=== PATIENT | female | born 1995 ===

== ENCOUNTER 2020-12-23 13:45 | Outpatient (CLI) | payer OTHER | END 2020-12-23 14:00 | disposition home or self-care (01) | LOC: PPH VACUNA 13:45 | PROVIDERS: ATTEND Emergency Medicine Pediatric Emergency Medicine | DX: Z23 Encounter for immunization (principal) ==

== ENCOUNTER 2021-07-14 08:13 | Outpatient (CLI) | payer OTHER | END 2021-07-14 08:26 | disposition home or self-care (01) | LOC: RAD 08:13 | PROVIDERS: ATTEND Orthopaedic Surgery Orthopaedic Surgery of the Spine | DX: M41.20 Other idiopathic scoliosis, site unspecified (principal) ==

== ENCOUNTER 2022-12-06 11:53 | Outpatient (CLI) | payer OTHER | END 2022-12-06 12:05 | disposition home or self-care (01) | LOC: SONOGRAMA 11:53 | PROVIDERS: ATTEND Obstetrics & Gynecology | DX: R10.2 Pelvic and perineal pain (principal); N93.8 Other specified abnormal uterine and vaginal bleeding; N93.9 Abnormal uterine and vaginal bleeding, unspecified ==

== ENCOUNTER 2024-05-14 12:43 | Outpatient (CLI) | payer OTHER | END 2024-05-14 12:50 | disposition home or self-care (01) | LOC: RAD 12:43 | DX: J45.40 Moderate persistent asthma, uncomplicated (principal) ==

== ENCOUNTER 2024-12-09 08:56 | Outpatient (CLI) | payer OTHER | END 2024-12-09 08:57 | disposition home or self-care (01) | LOC: RAD 08:56 | PROVIDERS: ATTEND Orthopaedic Surgery | DX: M79.642 Pain in left hand (principal) ==

== ENCOUNTER 2025-01-30 12:34 | Outpatient (CLI) | payer OTHER | END 2025-01-30 12:39 | disposition home or self-care (01) | LOC: MAMO-SONO 12:34 | PROVIDERS: ATTEND General Practice | DX: N63.11 Unspecified lump in the right breast, upper outer quadrant (principal); N63.21 Unspecified lump in the left breast, upper outer quadrant ==

== ENCOUNTER 2025-02-25 11:07 | Outpatient (CLI) | payer OTHER | END 2025-02-25 11:14 | disposition home or self-care (01) | LOC: RAD 11:07 | DX: J45.40 Moderate persistent asthma, uncomplicated (principal); R06.09 Other forms of dyspnea ==